=== PATIENT | female | born 1990 | race Caucasian/White ===

== ENCOUNTER 2018-10-22 21:26 | Emergency (ER) | payer SELFPAY ==
[~2018-10-22] VITALS: Ht 167.6 cm; Wt 113.6 kg
[2018-10-22 21:36] VITALS: Ht 167.6 cm; Wt 113.6 kg
[2018-10-22] MEDS ORDERED: CEPH-443 PO (23:03)
[2018-10-22] MEDS ORDERED: MUPI22OI2 TOP (23:03)
--- NOTE | 2018-10-22 23:06 | ERD ---
ER Documentation Chief Complaint Chief Complaint NEW THONGS WITH BLISTER FORMATION BETWEEN TOES HPI 28-year-old female presents with rash to the bilateral feet after getting new sandals which she thinks irritated the skin. She had a rash on the dorsal surface with blisters for the past 5 days it is painful and itchy. No fevers. Has not tried any medications for her symptoms. ROS All systems reviewed and are negative except as per history of present illness. Medications Home Meds Active Scripts Cephalexin* (Keflex*) 500 Mg Capsule, 500 MG PO QID for 5 Days, CAP Prov:LIZ ZHAO PA-C 10/22/18 Mupirocin* (Bactroban*) 2% -22 Gram Oint...g., 1 APPLIC TOP BID for 7 Days, EA Prov:LIZ ZHAO PA-C 10/22/18 PMhx/Soc Medical and Surgical Hx: pt denies Medical Hx, pt denies Surgical Hx Hx Alcohol Use: No Hx Substance Use: No Hx Tobacco Use: No Smoking Status: Never smoker FmHx Family History: No diabetes Physical Exam Vitals Vital Signs Date Temp Pulse Resp B/P (MAP) Pulse Ox O2 O2 Flow FiO2 Time Delivery Rate 10/22/18 99.6 93 18 147/81 96 21:36 (103) Physical Exam Const: No acute distress Head: Atraumatic Eyes: Normal Conjunctiva ENT: Normal External Ears, Nose and Mouth. Neck: Full range of motion. No meningismus. Resp: Clear to auscultation bilaterally Cardio: Regular rate and rhythm, no murmurs Feet: Dorsal surface of bilateral feet have erythematous rash in distribution of the top of her sandals with patches of purulence Procedures/MDM Patient has rash secondary to new sandals that she got. Parts of it look like it may be infected so we will treat her with Keflex as well as topical antibiotic ointment. Patient counseled regarding my diagnostic impression and care plan. Prior to discharge all questions answered. Pt agrees with treatment plan and understands strict return precautions. Pt is instructed to follow up with primary care provider within 24-48 hours. Precautionary instructions provided including instructions to return to the ER if not improving or for any worsening or changing symptoms or concerns. Departure Diagnosis: Primary Impression: Rash Condition: Stable Patient Instructions: Self-Care for Skin Rashes Additional Instructions: Call your primary care doctor TOMORROW for an appointment during the next 1-2 days.See the doctor sooner or return here if your condition worsens before your appointment time. LIZ ZHAO PA-C Oct 22, 2018 23:06
[2018-10-22 23:16] VITALS: BP 138/77; PULSE 75; RESP 17
== END 2018-10-22 23:17 | disposition home or self-care (01) ==
LOC: FTE 21:26
DX: R21 Rash and other nonspecific skin eruption (principal)
CPT/HCPCS: 99283